=== PATIENT | male | born 1980 ===

== ENCOUNTER 2024-04-12 00:20 | Emergency (ER) | payer OTHER ==
[2024-04-12] MEDS: Ketorolac 30 MG/ML SDV IM ONE (00:42)
== END 2024-04-12 01:30 | disposition home or self-care (01) ==
LOC: DL.ED 00:20
DX: S43.014A Anterior dislocation of right humerus, initial encounter (principal); S50.311A Abrasion of right elbow, initial encounter; W10.9XXA Fall (on) (from) unspecified stairs and steps, initial encounter
CPT/HCPCS: 73020; 73030; 73060; 96372; 99282; 99283; G0390; J1885